=== PATIENT | female | born 1980 ===

== ENCOUNTER 2017-08-26 03:36 | Emergency (ER) | payer OTHER, SELFPAY ==
[2017-08-26 03:37] VITALS: BMI 33.3
[2017-08-26 04:07] VITALS: O2SAT 98
--- NOTE | 2017-08-26 04:46 | ED PDOC ---
HPI: General Adult Time Seen by Provider: 08/26/17 04:07 Chief Complaint (Nursing): Fever Chief Complaint (Provider): fever History Per: Patient History/Exam Limitations: no limitations Onset/Duration Of Symptoms: Hrs Current Symptoms Are (Timing): Still Present Additional Complaint(s): 37 y/o female presents for evaluation of tactile fever x 4 hours. Associated headache, bodyaches. Tylenol taken at 21:00 last night for headache, but patient reports no other symptoms then. Denies dizziness, neck pain, nausea/ vomiting, nasal congestion, throat pain, cough, chest pain, shortness of breath , abdominal pain, urinary symptoms. Past Medical History Reviewed: Historical Data, Nursing Documentation, Vital Signs Vital Signs: Last Vital Signs Temp 102.3 F H 08/26/17 04:04 Pulse 103 H 08/26/17 04:04 Resp 16 08/26/17 04:04 BP 117/71 08/26/17 04:04 Pulse Ox 98 08/26/17 06:02 - Medical History PMH: No Chronic Diseases - Surgical History Surgical History: - Family History Family History: States: No Known Family Hx - Home Medications Home Medications: Ambulatory Orders Medication Instructions Recorded Oseltamivir Phosphate [Tamiflu] 75 mg PO BID #10 capsule 06/22/16 Albuterol HFA [Ventolin HFA 90 1 - 2 puff IH Q4 PRN #1 inhaler 06/24/16 mcg/actuation (8 g)] Ibuprofen [Motrin Tab] 600 mg PO Q6 PRN #15 tab 06/24/16 - Allergies Allergies/Adverse Reactions: Allergies Allergy/AdvReac Type Severity Reaction Status Date / Time No Known Allergies Allergy Verified 08/26/17 04:04 Review of Systems ROS Statement: Except As Marked, All Systems Reviewed And Found Negative Constitutional: Positive for: Fever Neurological: Positive for: Headache Physical Exam - Reviewed Nursing Documentation Reviewed: Yes Vital Signs Reviewed: Yes - Physical Exam Appears: Positive for: Well, Non-toxic, No Acute Distress Head Exam: Positive for: ATRAUMATIC, NORMAL INSPECTION, NORMOCEPHALIC Skin: Positive for: Normal Color Eye Exam: Positive for: Normal appearance ENT: Positive for: Normal ENT Inspection Neck: Positive for: Normal, Painless ROM Cardiovascular/Chest: Positive for: Regular Rate, Rhythm Respiratory: Positive for: Normal Breath Sounds Gastrointestinal/Abdominal: Positive for: Normal Exam Back: Positive for: Normal Inspection Extremity: Positive for: Normal ROM Neurologic/Psych: Positive for: Alert, Oriented. Negative for: Motor/Sensory Deficits - ECG O2 Sat by Pulse Oximetry: 98 - Progress ED Course And Treament: flu, ibuprofen On re-eval, patient states she is feeling better. Vitals improved Patient educated on findings, advised ibuprofen/tylenol PRN fever. Fluids. Rest. Follow up PMD 2-3 days. Return precautions given. Disposition - Clinical Impression Clinical Impression: Viral syndrome - Patient ED Disposition Is Patient to be Admitted: No Counseled Patient/Family Regarding: Studies Performed, Diagnosis, Need For Followup - Disposition Disposition: Routine/Home Disposition Time: 06:02 Condition: IMPROVED Instructions: Viral Syndrome (DC) Forms: [employer] (Syrian), [facility] ED School/Work Excuse
[2017-08-26 07:11] VITALS: BP 126/82; PULSE 88; RESP 18; TEMP 99.1
== END 2017-08-26 05:58 | disposition home or self-care (01) ==
LOC: H.ER 03:36
DX: B34.9 Viral infection, unspecified (principal)

== ENCOUNTER 2017-12-07 22:53 | Emergency (ER) | payer OTHER, SELFPAY ==
[2017-12-07 22:53] VITALS: BMI 33.3
[2017-12-07 23:13] VITALS: BP 114/61; PULSE 77; RESP 18; TEMP 99.1; O2SAT 99
--- NOTE | 2017-12-07 23:14 | ED PDOC ---
Lower Extremity Pain/Injury Time Seen by Provider: 12/07/17 23:14 Chief Complaint (Nursing): Lower Extremity Problem/Injury Chief Complaint (Provider): ankle pain History Per: Patient Additional Complaint(s): 37-year-old female presents with pain and swelling to left foot status post trip and fall about 20 minutes prior to arrival. Patient unable to bear any weight. She came right to ED. No meds taken for pain relief. No associated ankle pain. PMD: none Past Medical History Reviewed: Historical Data, Nursing Documentation, Vital Signs Vital Signs: Last Vital Signs Temp 99.1 F 12/07/17 23:11 Pulse 77 12/07/17 23:11 Resp 18 12/07/17 23:11 BP 114/61 12/07/17 23:11 Pulse Ox 99 12/07/17 23:11 - Medical History PMH: No Chronic Diseases - Surgical History Surgical History: Other surgeries: tubal ligation - Family History Family History: States: No Known Family Hx - Living Arrangements Living Arrangements: With Family - Social History Current smoker - smoking cessation education provided: No Alcohol: None Drugs: Denies - Home Medications Home Medications: Ambulatory Orders Medication Instructions Recorded Oseltamivir Phosphate [Tamiflu] 75 mg PO BID #10 capsule 06/22/16 Albuterol HFA [Ventolin HFA 90 1 - 2 puff IH Q4 PRN #1 inhaler 06/24/16 mcg/actuation (8 g)] Ibuprofen [Motrin Tab] 600 mg PO Q6 PRN #15 tab 06/24/16 - Allergies Allergies/Adverse Reactions: Allergies Allergy/AdvReac Type Severity Reaction Status Date / Time No Known Allergies Allergy Verified 12/07/17 23:11 Wells Criteria for PE - Wells Criteria for Pulmonary Embolism Clinical Signs and Symptoms of DVT: No P.E is #1 Diagnosis, or Equally Likely: No Heart Rate >100: No Immobilization at least 3 days;Surgery previous 4 weeks: No Previous, objectively diagnosed PE or DVT: No Hemoptysis: No Malignancy w/treatment within 6 months, or palliative: No Total Score: 0 Review of Systems ROS Statement: Except As Marked, All Systems Reviewed And Found Negative Musculoskeletal: Positive for: Other (left foot injury) Physical Exam - Reviewed Nursing Documentation Reviewed: Yes Vital Signs Reviewed: Yes - Physical Exam Appears: Positive for: Well, Non-toxic, No Acute Distress Skin: Positive for: Normal Color. Negative for: Rash Eye Exam: Positive for: Normal appearance Extremity: Positive for: Other (Moderate swelling and tenderness dorsal lateral aspect of left foot, nontender left ankle, normal distal sensation, palpable distal pulses) Neurologic/Psych: Positive for: Alert, Oriented - Laboratory Results Urine POC: Negative (has tubal ligation) - ECG O2 Sat by Pulse Oximetry: 99 Pulse Ox Interpretation: Normal - Other Rad Left foot x-ray X-Ray: Interpreted by Me, Viewed By Me X-Ray Interpretation: midly displaced fracture to base of 5th metatarsal Medical Decision Making Medical Decision Makin37 y/o with left foot pain Plan: PO motrin X-ray left ankle Patient to be seen by Dr. Fox, podiatry resident. Disposition - Clinical Impression Clinical Impression: Foot fracture - Patient ED Disposition Is Patient to be Admitted: Transfer of Care - Disposition Disposition: Transfer of Care Disposition Time: 00:05 Condition: FAIR Instructions: Foot Fracture (DC) Forms: [employer] (Ukrainian) Patient Signed Over To: Tabatha Forte Handoff Comments: pending podiatry consult and final disposition
--- NOTE | 2017-12-08 00:29 | ED PDOC ---
- Laboratory Results Urine POC: Negative (has tubal ligation) - ECG O2 Sat by Pulse Oximetry: 99 - Progress ED Course And Treament: Case endorsed to headline writer from Mala GARCIA pending podiatry eval Patient evaluated by podiatry resident on-call; placed in posterior splint/ crutches given with demonstration on use Advised tylenol, RICE Follow up podiatry clinic Patient re-educated on findings, advised follow up as instructed Return precautions given Disposition - Clinical Impression Clinical Impression: Foot fracture - POA Present On Arrival: None - Disposition Referrals: Podiatry Clinic [Outside] Disposition: Routine/Home Disposition Time: 00:28 Condition: IMPROVED Instructions: Foot Fracture (DC) Print Language: NEPALI
--- NOTE | 2017-12-08 01:34 | CP.PCM.CON ---
History of Present Illness - History of Present Illness History of Present Illness: Consult notes for attending Dilia Candelaria 37 y/o F patient seen and evaluated at the ED complaining of pain and swelling in his left foot. Patient is AAO X 3 and NAD. Patient states that she tripped down and twisted his left foot while she was helping her hausband to carry the garbage. Patient states that this happened few hours ago. Patient states that he can't put weight on his left foot. Patient states that his pain is 8/10 on VAS scale. Patient denies any other pedal complaint. Patient denies any F/N/V/C or SOB recently. PMH: None PSH: , tubal ligation Allergies: NKDA Social Hx: Denies smooking, ETOH or illicite drug use. Review of Systems - Review of Systems Review of Systems: As per HPI Past Patient History - Past Social History Alcohol: None Drugs: Denies - PSYCHIATRIC Hx Substance Use: No - SURGICAL HISTORY Hx Surgeries: Yes Hx Section: Yes Hx Tubal Ligation: Yes - ANESTHESIA Hx Anesthesia: Yes Hx Anesthesia Reactions: No Meds Allergies/Adverse Reactions: Allergies Allergy/AdvReac Type Severity Reaction Status Date / Time No Known Allergies Allergy Verified 12/07/17 23:11 Physical Exam - Constitutional Appears: Well, Non-toxic, No Acute Distress - Head Exam Head Exam: ATRAUMATIC, NORMOCEPHALIC - Extremities Exam Additional comments: Lower extremity focused exam: Vasc: DP/PT 2/4 b/. Cap refill < 3 sec in all digits. Temp gradient is warm to cool. non pitting edema noted at the level of the lateral aspect of the left foot at the 5th met base. Neuro: protective and gross sensation are intact b/l. Derm: No open lesions, No clinical signs of infection. MSK: Pain on palpation of the lateral aspect of the left foot at the 5th met base.. Pain with inversion of the left foot. Muscle power intact 5/5 in all muscle groups b/l. - Neurological Exam Neurological exam: Alert, Oriented x3 - Psychiatric Exam Psychiatric exam: Normal Affect, Normal Mood Results - Vital Signs Recent Vital Signs: Last Vital Signs Temp 99.1 F 12/07/17 23:11 Pulse 77 12/07/17 23:11 Resp 18 12/07/17 23:11 BP 114/61 12/07/17 23:11 Pulse Ox 99 12/08/17 00:28 Assessment & Plan - Assessment and Plan (Free Text) Assessment: 37 y/o F patient Seen and evaluated at the ED for fracture base of left 5th metatarsal bone. Plan: Patient seen and evaluated at the ED Plan discussed in details with the attending Dilia Candelaria. Vital data reviewed, Afebrile X-ray left foot showed fracture 5th met. base. AO posterior and u splint applied to the patient left lower extremity Patient obstructed to keep her left LE NWB and to ambulate using crutches. Dispensed 1 pair of crutches. Patient instructed to do icing and elevation. Patient instructed to use OTC Tylenol for pain. Patient will F/U at podiatry clinic. - Date & Time Date: 12/08/17 Time: 01:33
--- NOTE | 2017-12-08 10:50 | RAD ---
Date of service: 12/07/2017 PROCEDURE: Left Foot Radiographs. HISTORY: trauma COMPARISON: None. FINDINGS: BONES: Comminuted mildly displaced fracture at the base of the 5th metatarsal. There is a nondisplaced transverse component. There is an oblique minimally displaced component at the lateral base. No other fracture is identified. JOINTS: Normal. SOFT TISSUES: Normal. OTHER FINDINGS: None. IMPRESSION: Comminuted mildly displaced fracture base of 5th metatarsal.
== END 2017-12-08 01:06 | disposition home or self-care (01) ==
LOC: H.ER 22:53
DX: S92.302A Fracture of unspecified metatarsal bone(s), left foot, initial encounter for closed fracture (principal); W19.XXXA Unspecified fall, initial encounter; Y92.89 Other specified places as the place of occurrence of the external cause

== ENCOUNTER 2017-12-10 13:50 | Emergency (ER) | payer OTHER, SELFPAY ==
[2017-12-10 13:50] VITALS: BMI 33.3
[2017-12-10 14:07] VITALS: BP 105/71; PULSE 83; RESP 18; TEMP 97; O2SAT 99
--- NOTE | 2017-12-10 14:12 | ED PDOC ---
HPI: General Adult Time Seen by Provider: 12/10/17 14:11 Chief Complaint (Nursing): Wound Check Chief Complaint (Provider): leg pain History Per: Patient Additional Complaint(s): 37-year-old female presents to emergency department with pain to splint was applied to left leg. Patient was seen in ED 2 days ago and diagnosed with left foot fracture. She was seen yesterday in clinic at which time a new cast was placed. Patient states since placement of the cast she is for pain and rubbing against her heel. She returns today for further evaluation. Past Medical History Reviewed: Historical Data, Nursing Documentation, Vital Signs Vital Signs: Last Vital Signs Temp 97.0 F L 12/10/17 14:05 Pulse 83 12/10/17 14:05 Resp 18 12/10/17 14:05 BP 105/71 12/10/17 14:05 Pulse Ox 99 12/10/17 14:12 - Medical History PMH: No Chronic Diseases - Surgical History Surgical History: - Family History Family History: States: No Known Family Hx - Living Arrangements Living Arrangements: With Family - Social History Current smoker - smoking cessation education provided: No Alcohol: None Drugs: Denies - Home Medications Home Medications: Ambulatory Orders Medication Instructions Recorded Oseltamivir Phosphate [Tamiflu] 75 mg PO BID #10 capsule 06/22/16 Albuterol HFA [Ventolin HFA 90 1 - 2 puff IH Q4 PRN #1 inhaler 06/24/16 mcg/actuation (8 g)] Ibuprofen [Motrin Tab] 600 mg PO Q6 PRN #15 tab 06/24/16 - Allergies Allergies/Adverse Reactions: Allergies Allergy/AdvReac Type Severity Reaction Status Date / Time No Known Allergies Allergy Verified 12/07/17 23:11 Review of Systems ROS Statement: Except As Marked, All Systems Reviewed And Found Negative Musculoskeletal: Positive for: Other (discomfort to left leg cast) Physical Exam - Reviewed Nursing Documentation Reviewed: Yes Vital Signs Reviewed: Yes - Physical Exam Appears: Positive for: Well, Non-toxic. Negative for: No Acute Distress Skin: Positive for: Normal Color. Negative for: Rash Eye Exam: Positive for: Normal appearance Extremity: Positive for: Other (Posterior splint in place to left lower extremity, normal cap refill) Neurologic/Psych: Positive for: Alert, Oriented - ECG O2 Sat by Pulse Oximetry: 99 Pulse Ox Interpretation: Normal Medical Decision Making Medical Decision Makin37 year old with cast pain Dr. Fox, podiatry resident came to bedside to see patient. Splint was replaced by resident. Patient confirms new splint is comfortable. Patient was advised to follow-up next week with podiatry clinic. Disposition - Clinical Impression Clinical Impression: Foot fracture - Patient ED Disposition Is Patient to be Admitted: No Counseled Patient/Family Regarding: Need For Followup - Disposition Referrals: Podiatry Clinic [Outside] Disposition: Routine/Home Disposition Time: 15:05 Condition: STABLE Additional Instructions: Keep splint on at all times. Follow up next week with podiatry clinic. Instructions: Foot Fracture (DC), Cast Care Forms: [employer] ([place]i)
--- NOTE | 2017-12-10 16:01 | CP.PCM.CON ---
History of Present Illness - History of Present Illness History of Present Illness: Podiatry consult notes for attending Laure Candelaria 37 y/o F patient seen and evaluated at the ED complaining of pain at her left heel at the site of posterior splint. Patient is AAO X 3 and NAD. Patient states that she got her left foot fractured last thursday and came to the ED where her left foot put in a posterior and u splint. Patient states that she came yesterday to the podiatry clinic and she had the posterior splint applied again and since then she is feeling pain in her left heel. Patient states that his pain is 4/10 on VAS scale and it's more like friction between the splint and her heel. Patient denies any other pedal complaint. Patient denies any F/N/V /C or SOB recently. PMH: None PSH: , tubal ligation Allergies: NKDA Social Hx: Denies smooking, ETOH or illicite drug use. Review of Systems - Review of Systems Review of Systems: As per HPI Past Patient History - Past Social History Smoking Status: Never Smoked - PSYCHIATRIC Hx Substance Use: No - SURGICAL HISTORY Hx Surgeries: Yes Hx Section: Yes Hx Tubal Ligation: Yes - ANESTHESIA Hx Anesthesia: Yes Hx Anesthesia Reactions: No Meds Allergies/Adverse Reactions: Allergies Allergy/AdvReac Type Severity Reaction Status Date / Time No Known Allergies Allergy Verified 12/07/17 23:11 Physical Exam - Constitutional Appears: Well, Non-toxic, No Acute Distress - Head Exam Head Exam: ATRAUMATIC, NORMOCEPHALIC - Extremities Exam Additional comments: Lower extremity focused exam: Vasc: DP/PT 2/4 b/. Cap refill < 3 sec in all digits. Temp gradient is warm to cool. No edema. Mild ecchymosis at the base of the left 5th metatarsal bone. Neuro: protective and gross sensation are intact b/l. Derm: No open lesions, No clinical signs of infection. MSK: Pain on palpation of the lateral aspect of the left foot at the 5th met base. Muscle power intact 5/5 in all muscle groups b/l. Palpating the left calf and left heel didn't illicit any pain. - Neurological Exam Neurological exam: Alert, Oriented x3 - Psychiatric Exam Psychiatric exam: Normal Affect, Normal Mood Results - Vital Signs Recent Vital Signs: Last Vital Signs Temp 97.0 F L 12/10/17 14:05 Pulse 83 12/10/17 14:05 Resp 18 12/10/17 14:05 BP 105/71 12/10/17 14:05 Pulse Ox 99 12/10/17 15:48 Assessment & Plan - Assessment and Plan (Free Text) Assessment: 37 y/o F patient Seen and evaluated at the ED for pain at the back of the left heel after splinting her for fracture base of left 5th metatarsal bone. Plan: Patient seen and evaluated at the ED Plan discussed in details with the attending DrDilia. Vital data reviewed, Afebrile New AO posterior splint applied to the patient left lower extremity Patient instructed to still keeping her left LE NWB and to ambulate using crutches. Patient instructed to use OTC Tylenol for pain. Patient will F/U at podiatry clinic. - Date & Time Date: 12/10/17 Time: 16:04
== END 2017-12-10 15:09 | disposition home or self-care (01) ==
LOC: H.ER 13:50
DX: Z47.89 Encounter for other orthopedic aftercare (principal)

== ENCOUNTER 2017-12-30 11:32 | Day surgery (SDC) | payer SELFPAY ==
[~2017-12-30 11:32] MED LIST: Lactated Ringer's 1,000 ML IV ONE
--- NOTE | 2017-12-30 13:40 | CP.SDSHP ---
Same Day Surgery H & P - History Proposed Procedure: Left 5th metatarsal ORIF Pre-Op Diagnosis: Left 5th metatarsal fracture - Allergies Allergies: Allergies No Known Allergies Allergy (Verified 12/07/17 23:11) - Physical Exam Vital Signs: Vital Signs 12/30/17 12/30/17 12:20 12:22 Temperature 98.2 F Pulse Rate 68 68 Respiratory 20 Rate Blood Pressure 108/56 L O2 Sat by Pulse 97 Oximetry - Date & Time Date: 12/30/17 Time: 13:39 Short Stay Discharge - Short Stay Discharge Admitting Diagnosis/Reason for Visit: S92.35 Disposition: HOME/ ROUTINE Referrals: Ana Velez MD [Primary Care Provider] - Additional Instructions (Diet, Activity): -Patient in good/stable condition for discharge home -Pt to resume medications per medical reconciliation -Resume regular diet Please keep dressing clean, dry, & intact to surgical site -Use plastic bag over bandage for showering -Wear post op shoe at all times when ambulating -Call clinic if you see signs of infection (redness, swelling, malodor) -Please make an appointment to see Dr. Kelsey in office/clinic within 1 week for post-op check Progress Note/Discharge Note with Instructions: - Patient evaluated bedside in recovery s/p surgical procedure. - After surgical procedure patient in NAD - (+) Void, (+) Appetite - Capillary refill time <3s and NVSI intact. - Patient denies complaints at this time - Post operative instructions and plan of care explained to patient at length. - Pt. acknowledges understanding. - Patient stable for DC per podiatric surgery
--- NOTE | 2017-12-30 13:42 | CP.PCM.PN ---
Subjective - Date & Time of Evaluation Date of Evaluation: 12/30/17 Time of Evaluation: 13:40 - Subjective Subjective: 37 yo female seen and evaluated for left foot surgery. Patient states that she twisted her foot in a hole in the hallway about a month ago. She notes that she is in mild pain however has been taking pain medication. She has remained nonweight bearing to her left foot with the use of crutches. She has been NPO since 9:30 pm last night and denies eating or drinking anything since that time. She has had surgeries in the past and states she has had no reactions to anesthesia. Patient denies N/V/F/SOB. Objective - Vital Signs/Intake and Output Vital Signs (last 24 hours): Temp Pulse Resp BP Pulse Ox 98.2 F 68 20 108/56 L 97 12/30/17 12:20 12/30/17 12:22 12/30/17 12:20 12/30/17 12:20 12/30/17 12:20 - Medications Medications: Current Medications Bupivacaine HCl (Marcaine 0.5%) 20 ml IJ ONCE ONE Stop: 12/30/17 13:37 Cefazolin Sodium 2 gm/ Sodium (Chloride) 100 mls @ 100 mls/hr IVPB ONCE ONE PRN Reason: Protocol Stop: 12/30/17 14:35 Sodium Chloride (Sodium Chloride 0.9%) 1,000 mls @ 0 mls/hr IV .Q0M BERTRAND PRN Reason: Per Protocol Stop: 12/31/17 13:37 Lidocaine HCl (Lidocaine 1% (20ml)) 20 ml IJ ONCE ONE Stop: 12/30/17 13:37 - Constitutional Appears: Well, Non-toxic, No Acute Distress - Head Exam Head Exam: ATRAUMATIC, NORMOCEPHALIC - Extremities Exam Additional comments: LLE focused exam. Vascular: CFT <3 seconds to left digits Ortho: Able to move toes on left Neuro: Gross and protective sensation intact. Derm: Posterior splint clean, dry, and intact. - Neurological Exam Neurological Exam: Alert, Awake, Oriented x3 - Psychiatric Exam Psychiatric exam: Normal Affect, Normal Mood Assessment and Plan - Assessment and Plan (Free Text) Assessment: 37 yo female seen and evaluated for left 5th metatarsal fracture ORIF surgery. Plan: Pt was seen and examined in SDS Pt NPO status was confirmed All pre-op testing and clearance in chart Pt has exhausted all conservative treatment at this time and is opting for surgical intervention Pt was explained procedure and post-operative course All pt's questions were answered to satisfaction No guarantees were made Pt understands all risks, benefits and complications of procedure Pt will follow-up with within 1 week of surgery
[2017-12-30] MEDS ORDERED: Sodium Chloride 0.9% 1,000 ML IV SCH (13:45)
[2017-12-30] MEDS ORDERED: Lidocaine 1% Inj (20ml) IJ ONE (14:00)
[2017-12-30] MEDS ORDERED: Bupivacaine 0.5% Inj(30mL) IJ ONE (14:30)
[2017-12-30] MEDS ORDERED: ceFAZolin IV 2 gm in Dextrose 2 GM/50 ML BAG IVPB ONE (14:35)
[2017-12-30] MEDS ORDERED: MethylPREDNISolone Depo 40 mg/ml Inj ONE (14:47)
[2017-12-30] MEDS ORDERED: Dexamethasone 4 mg/1 ml ONE ×3 (14:48→16:14)
[2017-12-30] MEDS ORDERED: ceFAZolin IV 1 gm in Dextrose 2 GM/100 ML BAG IVPB ONE (14:49)
[2017-12-30] MEDS ORDERED: Lidocaine Hydrochloride 5 ML INJ ONE (14:49)
[2017-12-30] MEDS ORDERED: Midazolam 2 MG/2 ML VIAL ONE (15:12)
[2017-12-30] MEDS ORDERED: Propofol 10 mg/ml Inj (20 ML) ONE (15:12)
[2017-12-30] MEDS: Bupivacaine HCl 0.25% PF (30 ml) Inj ONE ×2 (15:34→16:44)
[2017-12-30] MEDS ORDERED: Oxycodone/Acetaminophen 5/325 mg Tab PO PRN ×2 (16:54)
--- NOTE | 2017-12-30 16:57 | PCM.SURG1 ---
Surgeon's Initial Post Op Note - Surgeon's Notes Surgeon: Dr. Kelsey, DPM Plant Safety Engineer: Dr. Do PGY3, Dr. Copeland PGY2 Type of Anesthesia: General LMA Anesthesia Administered By: Dr. Rose Mary Carvalho Pre-Operative Diagnosis: Left 5th metatarsal base fracture Operative Findings: See dictation: I: 10cc 1:1 mix of 1% lidocaine plain and 0.25% marcaine plain, 10 cc 0.25% marcaine. M: .045 kwire, .062 k wire, 26 gauge monofilament, 3-0vicryl, 4-0 vicryl, 4-0 monocril Post-Operative Diagnosis: Same Operation Performed: Left 5th metatarsal fracture ORIF with tension banding Specimen/Specimens Removed: none Estimated Blood Loss: EBL {In ML}: 5 Blood Products Given: N/A Drains Used: No Drains Post-Op Condition: Good Date of Surgery/Procedure: 12/30/17 Time of Surgery/Procedure: 17:21
[2017-12-30] MEDS ORDERED: HYDROmorphone 1 mg/ml ISec ONE (17:07)
[2017-12-30] MEDS: HYDROmorphone 0.5 mg/0.5 ml ISec IVP PRN ×3 (17:10→17:42)
[2017-12-30] MEDS ORDERED: Lactated Ringer's 1,000 ML IV SCH (17:15)
[2017-12-30 18:24] VITALS: RESP 18
[2017-12-30 18:28] VITALS: BMI 33.3
[2017-12-30] MEDS ORDERED: Oxycodone/Acetaminophen 5/325 mg Tab PO ONE (18:40)
[2017-12-30 18:44] VITALS: O2SAT 98
[2017-12-30 19:44] VITALS: BP 102/56; PULSE 54; TEMP 98.2
--- NOTE | 2017-12-31 06:22 | OP ---
Copied To: Raymond Do DPM Attending MD: Dave Kelsey DPM PROCEDURE DATE: 12/30/2017 PRIMARY SURGEON: Dave Kelsey DPM ASSISTANTS: Raymond Do DPM, PGY-3 and Niraj Copeland DPM, PGY-2. ANESTHESIOLOGIST: Jonel Warren MD ANESTHESIA TYPE: General LMA with local. PREOPERATIVE DIAGNOSIS: Left foot fifth metatarsal comminuted base fracture. POSTOPERATIVE DIAGNOSIS: Left foot fifth metatarsal comminuted base fracture. PROCEDURES PERFORMED: 1. Left foot fifth metatarsal base open reduction with internal fixation. 2. Fluoroscopy. INDICATIONS: The patient is a 37-year-old female with the above-stated diagnosis. The patient suffered a traumatic injury and is now in need of surgical intervention. The patient signed a surgical consent after careful explanation of the risks, benefits, complications, and potential alternatives to the proposed surgical procedure. No guarantees were either given or implied. All the patient's questions were answered to her satisfaction. PREPARATION: The patient's n.p.o. status was confirmed prior to bringing the patient to the operating room. The patient was brought into the operating room and placed on the operating room table in a supine position. A well-padded pneumatic tourniquet was applied in a supramalleolar position to the patient's left ankle and set at 250 mmHg to be inflated once the procedure began. Once general anesthetic was confirmed to have been achieved, the patient's left foot then received total of 10 mL of 1:1 mixture of 0.25% Marcaine plain to 1% lidocaine plain along the surgical area. Once local anesthetic was confirmed to have been achieved, the patient's left foot was then prepped and draped in the usual sterile manner. Foot was exsanguinated, tourniquet was inflated, and the procedure began. PROCEDURE #1: Left fifth metatarsal base open reduction with internal fixation under fluoroscopy. Attention was then directed to the lateral aspect of the patient's foot where fifth metatarsal styloid process was palpated and marked. At this time, superior to the dissection of the styloid process in the dorsolateral aspect of the lateral foot. An approximately 3-cm linear longitudinal incision was made with the distal aspect of the styloid process being the midpoint using a #15 blade. This incision was extended down to its subcutaneous tissue layers with care being taken to identify, avoid, and retract all vital neurovascular structures. All bleeders were cauterized and ligated as needed and encountered. Peroneus brevis insertion was visualized at this time and retracted inferiorly, thus allowing better visualization of periosteum in the styloid process. At this time, superior to the insertion of the peroneus brevis tendon fibers along the full length of the incision, a linear longitudinal periosteal incision was made down to the level of the joint. Periosteum was then reflected medially and laterally thus allowing visualization of fifth metatarsal base and styloid process. At this time, sagittal plane component of fracture fragment was appreciated. Note, that the patient is three weeks status post initial injury, and there is no significant noted callus formation at this time across the fracture site. On further visualization and examination, it should be noted that styloid avulsion component of fracture due to a secondary fracture line was appreciated and found to be moderately unstable. Surgical site was then flushed with copious amount of sterile saline ensuring release of impinging soft tissue between osseus ends was performed. The medullary components of hematoma left intact. Surgical site was once again flushed with copious amounts of sterile saline. At this time, fluoroscopy was introduced to allow guidance for temporary fixation point. At this time, a 0.062-inch K-wire was placed inferior to the styloid process and driven obliquely from proximal lateral to distal medial incorporating two fracture fragments. Under fluoroscopic guidance, positioning was found to be adequate. Next, a 0.045-inch K-wire was placed superior to the styloid process in parallel with the 0.062-inch K-wire and driven in similar orientation. Both K-wires purchased the medial cortex of the fifth metatarsal. At this time, measuring from sagittal plane fracture fragment to distal tip of K-wire was assessed, and the same measured length was used to place distal fixation point. This distal fixation point which was previously measured was used as a guide point to define a hole oriented from dorsal lateral surface of the fifth metatarsal to the plantar lateral surface of the fifth metatarsal using a 0.028-inch K-wire to distal point hole. At this time, a 26-gauge monofilament stainless steel wire was attached to a bilayer and attached to the trephine hole. Using manual manipulation to incorporate along proximal K-wires, a zowtqa-[id number]-aldka stitch pattern was weaved with the braided 26-gauge wire. Orientation of the ixbjzp-lu-kqvos was found to be stable and adequate. At this time, K-wires were then angled and bent to allow adequate pattern retention of monofilament K-wires without displacement. Redundant ends of the proximal K-wires were then cut, passed from the operative field. Then, ends of K-wires were oriented to fully contact and maintain position of braided-gauged monofilament. At this time under fluoroscopic guidance, [id number] monofilament cerclage configuration was tensioned. Once adequate tension was achieved, fluoroscopic guidance was used to evaluate and confirm that fracture fragment diastasis and position was reduced and maintained respectively. Adequate fracture fixation was appreciated at this time. Surgical site was then flushed with copious amounts of sterile saline. Redundant edges of monofilament K-wire were then cut using crepe sole wire brusher, braided tail end, was then tucked inferiorly to the fifth metatarsal bone shaft to fix subperiosteally with no involvement of myocutaneous structures or impingement thereof. At this time, surgical site was flushed with copious amounts of sterile saline. Periosteal structures were reapproximated using 3-0 Vicryl. Subcutaneous tissue layers were reapproximated using 4-0 Vicryl. Skin was reapproximated using 4-0 Monocryl in a running suture-type fashion. Surgical site then received a postoperative injection of 10 mL of 0.25% Marcaine plain in a local block type fashion. Surgical site was then dressed with Steri-Strips, Xeroform, 4x4 gauze, and Kerlix. The patient was placed in a well-padded fiberglass cast to be nonweightbearing postoperatively. POSTOPERATIVE CONDITION: The patient tolerated the anesthesia and procedure well and was escorted to the recovery room with vital signs stable and neurovascular status intact. The patient's cast was bivalved at this time. The patient had no complaints or complications and will follow up with Dr. Kelsey on an outpatient basis. Raymond Do DPM Dave Kelsey DPM Jayme # [phone] GARETT
--- NOTE | 2017-12-31 07:36 | RAD ---
Date of service: 12/30/2017 PROCEDURE: Left Foot Radiographs. HISTORY: s/p left foot surgery COMPARISON: None. FINDINGS: BONES: Cancerous fine bony and soft tissue details. 2 K-wires and cerclage wire reduced comminuted fracture of the base of 5th metatarsal bone. Limited postoperative changes seen in local soft tissues. No interval new fracture or dislocation appreciable. No subluxation either. JOINTS: As above. SOFT TISSUES: As above. OTHER FINDINGS: None. IMPRESSION: Status post ORIF comminuted fracture base 5th metatarsal bone left foot.
--- NOTE | 2017-12-31 12:24 | RAD ---
Date of service: 12/30/2017 PROCEDURE: Intraoperative Fluoroscopy. HISTORY: LEFT FOOT FINDINGS: Fluoroscopic assistance was provided Total fluoroscopic time (continuous mode) utilized during the procedure (seconds). 8.2 seconds. Please refer to the operative report from [facility]. Total exam DLP: 0.17. (mGy)
== END 2017-12-30 19:50 | disposition home or self-care (01) ==
LOC: H.OPSURG 11:32
PROVIDERS: ATTEND Podiatrist
DX: S92.352A Displaced fracture of fifth metatarsal bone, left foot, initial encounter for closed fracture (principal); J45.909 Unspecified asthma, uncomplicated; K29.70 Gastritis, unspecified, without bleeding; X58.XXXA Exposure to other specified factors, initial encounter
CPT/HCPCS: 28485; 73630; 76000; 97161; C1713; C1769; G8978; G8979; G8980; J0690; J1100; J1170; J2250; J2405; J2704; J3010; J7030; J7120

== ENCOUNTER 2018-01-13 17:36 | Emergency (ER) | payer SELFPAY ==
[2018-01-13 17:36] VITALS: BMI 33.3
[2018-01-13 17:49] VITALS: BP 111/75; PULSE 93; RESP 16; TEMP 99; O2SAT 99
--- NOTE | 2018-01-13 18:10 | ED PDOC ---
HPI: Wound Care - HPI Time Seen by Provider: 01/13/18 18:01 Chief Complaint (Nursing): Wound Check Chief Complaint (Provider): Wound Check History Per: Patient Exam Limitations: no limitations Location Of Injury: Left: Leg Additional Complaint(s): 37 year old female presents to the ED for wound check. Patient reports she went to the podiatry clinic to have her splint changed but patient states the splint is now wet. She consulted her doctor who said the splint should not be wet prompting ED visit. PMD: none Past Medical History Reviewed: Historical Data, Nursing Documentation, Vital Signs Vital Signs: Last Vital Signs Temp 99.0 F 01/13/18 17:47 Pulse 93 H 01/13/18 17:47 Resp 16 01/13/18 17:47 BP 111/75 01/13/18 17:47 Pulse Ox 99 01/13/18 17:47 - Medical History PMH: Gastritis Denies: Chronic Kidney Disease - Surgical History Surgical History: - Family History Family History: States: Unknown Family Hx - Home Medications Home Medications: Ambulatory Orders Medication Instructions Recorded Albuterol HFA [Ventolin HFA 90 1 - 2 puff IH Q4 PRN #1 inhaler 06/24/16 mcg/actuation (8 g)] Ibuprofen [Motrin Tab] 600 mg PO Q6 PRN #15 tab 06/24/16 Cephalexin [cephalexin] 500 mg PO TID 12/30/17 oxyCODONE/Acetaminophen [Percocet 1 tab PO .Q4-6 PRN 12/30/17 5/325 mg Tab] - Allergies Allergies/Adverse Reactions: Allergies Allergy/AdvReac Type Severity Reaction Status Date / Time No Known Allergies Allergy Verified 01/13/18 17:44 Review of Systems ROS Statement: Except As Marked, All Systems Reviewed And Found Negative Physical Exam - Reviewed Nursing Documentation Reviewed: Yes Vital Signs Reviewed: Yes - Physical Exam Appears: Positive for: Non-toxic, No Acute Distress Head Exam: Positive for: ATRAUMATIC, NORMOCEPHALIC Skin: Positive for: Normal Color, Warm, Dry Eye Exam: Positive for: Normal appearance Neck: Positive for: Normal, Painless ROM Cardiovascular/Chest: Negative for: Bradycardia, Tachycardia Respiratory: Negative for: Respiratory Distress Extremity: Positive for: Normal ROM, Other (Left lower leg splint intact) Neurologic/Psych: Positive for: Alert, Oriented. Negative for: Motor/Sensory Deficits - ECG O2 Sat by Pulse Oximetry: 99 (RA) Pulse Ox Interpretation: Normal Medical Decision Making Medical Decision Making: Initial Impression: Wound check Initial Plan: Podiatry consult completed. Splint changed. Scribe Attestation: Documented by Rafi Valenzuela acting as a scribe for Deepika LEMUS. Provider Scribe Attestation: All medical record entries made by the Scribe were at my direction and personally dictated by me. I have reviewed the chart and agree that the record accurately reflects my personal performance of the history, physical exam, medical decision making, and the department course for this patient. I have also personally directed, reviewed, and agree with the discharge instructions and disposition. Disposition - Clinical Impression Clinical Impression: Aftercare for cast or splint check or change Counseled Patient/Family Regarding: Diagnosis, Need For Followup - Disposition Referrals: Podiatry Clinic [Outside] Disposition: Routine/Home Disposition Time: 18:41 Condition: GOOD Forms: Musations (Serbian)
--- NOTE | 2018-01-13 19:58 | CP.PCM.CON ---
History of Present Illness - History of Present Illness History of Present Illness: Podiatry consult notes for attending Dr. Kelsey 37 y/o F patient seen and evaluated at the ED 2 weeks S/P ORIF L 5th met. fracture. Patient states that she was seen today at the podiatry clinic. She states that she had bivalved cast in her left LE. She states that the doctors in the clinic checked her wound and applied dressings and posterior splint. She states that the doctors instructed her to keep her dressings and posterior splint clean/dry and intact. She states that when she went home she was showering and her splint and dressings got wet so she came to the ED to change the dressings and splint. Patient denies any other pedal complaint at this time. Patient denies any F/N/V/C or SOB at this time. Review of Systems - Review of Systems Review of Systems: As per HPI Past Patient History - Past Medical History & Family History Past Medical History?: Yes - Past Social History Smoking Status: Never Smoked - CARDIAC Hx Cardiac Disorders: No - PULMONARY Hx Respiratory Disorders: No - NEUROLOGICAL Hx Neurological Disorder: No - HEENT Hx HEENT Problems: No - RENAL Hx Chronic Kidney Disease: No - ENDOCRINE/METABOLIC Hx Endocrine Disorders: No - HEMATOLOGICAL/ONCOLOGICAL Hx Blood Disorders: No - INTEGUMENTARY Hx Dermatological Problems: No - MUSCULOSKELETAL/RHEUMATOLOGICAL Hx Musculoskeletal Disorders: No - GASTROINTESTINAL Hx Gastritis: Yes - GENITOURINARY/GYNECOLOGICAL Hx Genitourinary Disorders: No - PSYCHIATRIC Hx Psychophysiologic Disorder: No Hx Substance Use: No - SURGICAL HISTORY Hx Surgeries: Yes Hx Section: Yes Hx Tubal Ligation: Yes - ANESTHESIA Hx Anesthesia: Yes Hx Anesthesia Reactions: No Meds Allergies/Adverse Reactions: Allergies Allergy/AdvReac Type Severity Reaction Status Date / Time No Known Allergies Allergy Verified 01/13/18 17:44 Physical Exam - Constitutional Appears: Well, Non-toxic, No Acute Distress - Head Exam Head Exam: ATRAUMATIC, NORMOCEPHALIC - Extremities Exam Additional comments: Left LE focused exam Vasc: DP/PT 2/4; CFT <3s x5; Temp gradient warm to cool, mild edema noted to the left foot. Neuro: grossly intact Derm: incision site was covered by steri-strips. Steri-strip was dry, clean and intact with small spot of dried blood. No drainage and No malodor. Ortho: pain on palpation at the surgical incision site. - Neurological Exam Neurological exam: Alert, Oriented x3 - Psychiatric Exam Psychiatric exam: Normal Affect, Normal Mood Results - Vital Signs Recent Vital Signs: Last Vital Signs Temp 99.0 F 01/13/18 17:47 Pulse 93 H 01/13/18 17:47 Resp 16 01/13/18 17:47 BP 111/75 01/13/18 17:47 Pulse Ox 99 01/13/18 18:47 Assessment & Plan - Assessment and Plan (Free Text) Assessment: 37 y/o F patient seen and evaluated in the ED for posterior splint reapplication 2 weeks S/P ORIF left 5th met fracture Plan: Pt seen and evaluated in ED Posterior splint and dressing removed. Steri-strip was intact Wound dressed using betadine and DSD. Reapplied posterior splint. Patient instructed to keep the splint and the dressings dry/clean and intact. Patient instructed to stay NWB to the left LE. and to ambulates using crutches. Patient instructed to get the Bactrim DS prescribed to her earlier in the clinic and to start it today. Patient instructed if she feel excessive pain, pressure, drainage from the surgery site or any F/N/V/C or SOB to come to the ED. Patient expressed verbal understanding. Patient to follow up in the podiatry clinic next Thursday. - Date & Time Date: 01/13/18 Time: 20:00
== END 2018-01-13 18:52 | disposition home or self-care (01) ==
LOC: H.ER 17:36
DX: Z48.00 Encounter for change or removal of nonsurgical wound dressing (principal); Z98.51 Tubal ligation status

== ENCOUNTER 2018-01-15 22:33 | Emergency (ER) | payer SELFPAY ==
[2018-01-15 22:34] VITALS: BMI 33.3
[2018-01-15 22:43] VITALS: O2SAT 100
[2018-01-15 23:32] LABS: BASO % 0.4 % (0.0-2.0); EOS # 0.1 K/uL (0.0-0.7); EOS % 1.4 % (0.0-4.0); HEMOGLOBIN 13.8 g/dL (12.0-16.0); LYMPH # 2.3 K/uL (1.0-4.3); LYMPH % 26.8 % (20.0-40.0); MEAN CELL VOLUME 83.7 fl (81.0-99.0); MEAN CORPUSCULAR HEMOGLOBIN 28.1 pg (27.0-31.0); MEAN CORPUSCULAR HGB CONC 33.6 g/dL (33.0-37.0); MEAN PLATELET VOLUME 9.6 fl (7.2-11.7); MONO # 0.6 K/uL (0.0-0.8); MONO % 6.7 % (0.0-10.0); NEUT # 5.6 K/uL (1.8-7.0); NEUT % 64.7 % (50.0-75.0); NRBC % 0.1 % (0.0-0.0); RBC 4.91 Mil/uL (3.80-5.20); RED CELL DISTRIBUTION WIDTH 15.5 % (11.5-14.5); WHITE BLOOD COUNT 8.6 K/uL (4.8-10.8)
--- NOTE | 2018-01-16 00:05 | ED PDOC ---
Lower Extremity Pain/Injury Time Seen by Provider: 01/15/18 22:47 Chief Complaint (Nursing): Lower Extremity Problem/Injury Chief Complaint (Provider): Left lateral foot pain, surgery 12/08 History Per: Patient History/Exam Limitations: no limitations Onset/Duration Of Symptoms: Days (1) Current Symptoms Are (Timing): Still Present Additional Complaint(s): 37 yo female with no medical problems presents for evaluation of lateral foot pain and incision site. PT injured ankle on 12/07/17 and had surgical repair by Dr. Kelsey. Pt was seen 2 days ago for evaluation of wet splint. Pt reports pain since that visit. No fever/chills. Past Medical History Reviewed: Historical Data, Nursing Documentation, Vital Signs Vital Signs: Last Vital Signs Temp 98.8 F 01/15/18 22:39 Pulse 86 01/15/18 22:39 Resp 14 01/15/18 22:39 BP 127/74 01/15/18 22:39 Pulse Ox 100 01/15/18 22:39 - Medical History PMH: Gastritis Denies: No Chronic Diseases, Chronic Kidney Disease - Surgical History Surgical History: - Family History Family History: States: Unknown Family Hx - Home Medications Home Medications: Ambulatory Orders Medication Instructions Recorded Albuterol HFA [Ventolin HFA 90 1 - 2 puff IH Q4 PRN #1 inhaler 06/24/16 mcg/actuation (8 g)] Ibuprofen [Motrin Tab] 600 mg PO Q6 PRN #15 tab 06/24/16 Cephalexin [cephalexin] 500 mg PO TID 12/30/17 oxyCODONE/Acetaminophen [Percocet 1 tab PO .Q4-6 PRN 12/30/17 5/325 mg Tab] - Allergies Allergies/Adverse Reactions: Allergies Allergy/AdvReac Type Severity Reaction Status Date / Time No Known Allergies Allergy Verified 01/15/18 22:38 Review of Systems ROS Statement: Except As Marked, All Systems Reviewed And Found Negative Constitutional: Negative for: Fever, Chills Skin: Positive for: Other Physical Exam - Reviewed Nursing Documentation Reviewed: Yes Vital Signs Reviewed: Yes - Physical Exam Appears: Positive for: Well, Non-toxic, No Acute Distress Head Exam: Positive for: ATRAUMATIC, NORMAL INSPECTION, NORMOCEPHALIC Skin: Positive for: Warm. Negative for: Normal Color ((+) pus over drainage site of left lateral foot ) Eye Exam: Positive for: Normal appearance ENT: Positive for: Normal ENT Inspection Neck: Positive for: Normal Respiratory: Negative for: Accessory Muscle Use, Respiratory Distress Back: Positive for: Normal Inspection Extremity: Positive for: Normal ROM, Swelling. Negative for: Tenderness, Deformity Neurologic/Psych: Positive for: Alert, Oriented - Laboratory Results Result Diagrams: 01/15/18 23:29 - ECG O2 Sat by Pulse Oximetry: 100 Medical Decision Making Medical Decision Making: Podiatry consult completed. Labs and XR ordered. Endorsed to Diann Awad PA-C at 0000. Disposition - Clinical Impression Clinical Impression: Encounter for post surgical wound check - Patient ED Disposition Is Patient to be Admitted: Transfer of Care - Disposition Disposition: Transfer of Care Disposition Time: 00:07 Condition: STABLE
[2018-01-16 00:13] LABS: ALBUMIN 4.4 g/dL (3.5-5.0); ALT/SGPT 44 U/L (9-52); AST/SGOT 29 U/L (14-36); BLOOD UREA NITROGEN 16 mg/dl (7-17); CALCIUM 9.6 mg/dL (8.4-10.2); GFR NON-AFRICAN AMERICAN > 60
--- NOTE | 2018-01-16 00:54 | CP.PCM.CON ---
History of Present Illness - History of Present Illness History of Present Illness: Podiatry consult notes for attending Dr. Kelsey 37 y/o F patient seen and evaluated at the ED s/p left 5th metatarsal ORIF (DOS : 12/30/16). Patient states that she was seen in the Podiatry clinic on 01/13/18 and then also seen in the ED the same day. Patient states her splint was changed at that time. Patient reports to the ED today due to complaints of pain and discomfort due to the dressing. Patient denies any change in activity and states she has been sitting in her bed. She states that the doctors instructed her to keep her dressings and posterior splint clean/dry and intact. Patient reports of burning pain post taking Motrin for pain. Patient denies any other pedal complaint at this time. Patient denies any F/N/V/C or SOB at this time. Patient states her pain was 10/10 with the splint and immediately went down to 7 /10 on the VAS as the splint was removed. Review of Systems - Review of Systems All systems: reviewed and no additional remarkable complaints except Review of Systems: As per HPI Past Patient History - Past Medical History & Family History Past Medical History?: Yes - Past Social History Smoking Status: Never Smoked - CARDIAC Hx Cardiac Disorders: No - PULMONARY Hx Respiratory Disorders: No - NEUROLOGICAL Hx Neurological Disorder: No - HEENT Hx HEENT Problems: No - RENAL Hx Chronic Kidney Disease: No - ENDOCRINE/METABOLIC Hx Endocrine Disorders: No - HEMATOLOGICAL/ONCOLOGICAL Hx Blood Disorders: No - INTEGUMENTARY Hx Dermatological Problems: No - MUSCULOSKELETAL/RHEUMATOLOGICAL Hx Musculoskeletal Disorders: No - GASTROINTESTINAL Hx Gastritis: Yes - GENITOURINARY/GYNECOLOGICAL Hx Genitourinary Disorders: No - PSYCHIATRIC Hx Psychophysiologic Disorder: No Hx Substance Use: No - SURGICAL HISTORY Hx Surgeries: Yes Hx Section: Yes Hx Tubal Ligation: Yes - ANESTHESIA Hx Anesthesia: Yes Hx Anesthesia Reactions: No Meds Allergies/Adverse Reactions: Allergies Allergy/AdvReac Type Severity Reaction Status Date / Time No Known Allergies Allergy Verified 01/15/18 22:38 Physical Exam - Constitutional Appears: Well, Non-toxic, No Acute Distress - Head Exam Head Exam: ATRAUMATIC, NORMOCEPHALIC - Extremities Exam Additional comments: Left LE focused exam strike-through noted to the dressing Vasc: DP/PT 2/4; CFT <3s x5; Temp gradient warm to warm at the surgical site, mild edema noted to dorso-lateral aspect of the the left foot. Neuro: grossly intact Derm: distal aspect of the incision site covered with steri-strips, sero- snaguinous drainage noted from the proximal 2 cm opening in the incision, negative probe to bone, negative for tunneling, negative malodor, maceration noted paula-wound, minimal erythema noted paula-wound Ortho: pain on palpation at the surgical incision site, negative Jackson or Jean' s sign - Neurological Exam Neurological exam: Alert, Oriented x3 - Psychiatric Exam Psychiatric exam: Normal Affect, Normal Mood Results - Vital Signs Recent Vital Signs: Last Vital Signs Temp 98.8 F 01/15/18 22:39 Pulse 86 01/15/18 22:39 Resp 14 01/15/18 22:39 BP 127/74 01/15/18 22:39 Pulse Ox 100 01/16/18 00:07 - Labs Result Diagrams: 01/15/18 23:29 01/15/18 23:29 Labs: Laboratory Results - last 24 hr 01/15/18 01/15/18 23:29 23:29 WBC 8.6 RBC 4.91 Hgb 13.8 Hct 41.1 MCV 83.7 MCH 28.1 MCHC 33.6 RDW 15.5 H Plt Count 210 MPV 9.6 Neut % (Auto) 64.7 Lymph % (Auto) 26.8 Drew % (Auto) 6.7 Eos % (Auto) 1.4 Baso % (Auto) 0.4 Neut # (Auto) 5.6 Lymph # (Auto) 2.3 Drew # (Auto) 0.6 Eos # (Auto) 0.1 Baso # (Auto) 0.0 Sodium 142 Potassium 3.8 Chloride 105 Carbon Dioxide 28 Anion Gap 13 BUN 16 Creatinine 0.7 Est GFR ( Amer) > 60 Est GFR (Non-Af Amer) > 60 Random Glucose 118 H Calcium 9.6 Total Bilirubin 0.3 AST 29 ALT 44 Alkaline Phosphatase 72 Total Protein 8.7 H Albumin 4.4 Globulin 4.2 H Albumin/Globulin Ratio 1.0 Assessment & Plan - Assessment and Plan (Free Text) Assessment: 37 y/o F patient seen and evaluated at the ED s/p left 5th metatarsal ORIF (DOS : 12/30/16) for pain to left foot Plan: Patient seen and evaluated for Dr. Kelsey Patient chart reviewed- Afebrile, absent leuykocytosis, WBC 8.6 Ordered X-rays of Left foot- hardware intact, no signs of soft tissue emphysema noted Patient splint removed and incision site evaluated Wound Cx Obtained-Pending results, will follow up with results at next clinic visit on Thursday01/18/18 Loose dressing applied to the surgical site- betadine, Telfa, DSD New Posterior Splint re-applied in a more plantarflexed position as patient complaining of pain Patient to continue taking antibiotics- Bactrim Patient to take Tylenol for pain q4-6 Patient educated on clinical signs of infection, and told to report ot ED if any signs present such as F/N/V/SOB/CP Patient to return to ED is Splint is wet or if splint is not bearable Patient instructed to remain NWB to LLE with the crutches Patient states she felt better after application of new splint Patient demonstrated verbal understanding Podiatry will see patient in clinic for wound care Thank you for the consult
--- NOTE | 2018-01-16 01:00 | ED PDOC ---
- Laboratory Results Result Diagrams: 01/15/18 23:29 01/15/18 23:29 - ECG O2 Sat by Pulse Oximetry: 100 - Progress ED Course And Treament: seen by podiatry resident. Wound redressed. resident has d/w Dr. Kelsey. Patient to f/u with him in office on thursday Disposition - Clinical Impression Clinical Impression: Encounter for post surgical wound check - POA Present On Arrival: None - Disposition Referrals: Dave Kelsey MD [Staff Provider] - Disposition: Routine/Home Disposition Time: 01:00 Condition: STABLE Instructions: Surgical Wound (DC)
[2018-01-16 05:20] VITALS: BP 122/70; PULSE 82; RESP 16; TEMP 98.2
--- NOTE | 2018-01-16 15:39 | RAD ---
Date of service: 01/15/2018 PROCEDURE: Left Foot Radiographs. HISTORY: Drainage from wound site COMPARISON: Comparison made with prior study dated 01/13/2018. FINDINGS: BONES: The current study reveals re- demonstrates 2 small fixation pins and cerclage wire presumably reducing fracture of the base 5th metatarsal. . There is elliptical shaped lucency about the distal coil/ twist in the cerclage wire ; rule out infection or loosening. In addition, there is moderate to fairly significant overlying soft tissue swelling suggesting cellulitis/infection. Questionable few small bubbles of subcutaneous air JOINTS: Normal. SOFT TISSUES: As above. OTHER FINDINGS: None. IMPRESSION: Re- demonstrated are 2 small fixation pins and cerclage wire presumably reducing fracture of the base 5th metatarsal. . There is elliptical shaped lucency about the distal coil/ twist in the cerclage wire ; rule out infection or loosening. In addition, there is moderate to fairly significant overlying soft tissue swelling suggesting cellulitis/infection. Questionable few small bubbles of subcutaneous air
== END 2018-01-16 01:00 | disposition home or self-care (01) ==
LOC: H.ER 22:33
DX: Z48.89 Encounter for other specified surgical aftercare (principal)

== ENCOUNTER 2018-09-06 10:39 | Day surgery (SDC) | payer OTHER, SELFPAY ==
[2018-09-06 11:43] VITALS: BMI 30.7
[2018-09-06] MEDS ORDERED: Lidocaine 1% Inj (20ml) ONE (12:28)
--- NOTE | 2018-09-06 12:32 | CP.SDSHP ---
Same Day Surgery H & P - History Proposed Procedure: US guided FNA of right thyroid nodule Pre-Op Diagnosis: thyroid nodule - Allergies Allergies: Allergies No Known Allergies Allergy (Verified 09/06/18 11:44) - Physical Exam Vital Signs: Vital Signs 09/06/18 11:45 Temperature 98.5 F Pulse Rate 70 Respiratory 12 Rate Blood Pressure 107/65 O2 Sat by Pulse 98 Oximetry Mental Status: Alert & Oriented x3 - Impression Impression: Pt with right thyroid nodule. Plan US guided FNA. Pt. Evaluated Today:Candidate for Anesthesia & Procedure: No - Date & Time Date: 09/06/18 Time: 12:32 Short Stay Discharge - Short Stay Discharge Admitting Diagnosis/Reason for Visit: E07.89 Disposition: HOME/ ROUTINE Referrals: Angélica Chau MD [Primary Care Provider] -
[2018-09-06 12:49] VITALS: RESP 18
--- NOTE | 2018-09-06 12:52 | PCM.SURG1 ---
Surgeon's Initial Post Op Note - Surgeon's Notes Surgeon: Tariq Calhoun MD Tractor Distributor: NONE Type of Anesthesia: Local Pre-Operative Diagnosis: Thyroid nodule Operative Findings: US showed a 3 cm right thyroid nodule Post-Operative Diagnosis: Thyroid nodule Operation Performed: US guided FNA of Right thyroid nodule Specimen/Specimens Removed: 25 g FNA x 5 passes Estimated Blood Loss: EBL {In ML}: 1 Blood Products Given: N/A Drains Used: No Drains Post-Op Condition: Good Date of Surgery/Procedure: 09/06/18 Time of Surgery/Procedure: 12:52
[2018-09-06 13:06] VITALS: BP 115/71; PULSE 78; TEMP 99; O2SAT 99
--- NOTE | 2018-09-07 13:34 | US ---
PROCEDURE: Date of Procedure: 09/06/2018 PROCEDURE: 1. Ultrasound guided FNA of right thyroid nodule, CPT 64047 2. Ultrasound guidance for FNA, 51631 Medications:3cc 1% Lidocaine HISTORY: Enlarged right thyroid nodule. TECHNIQUE: Following informed consent and procedure time-out, a limited ultrasound patient's neck confirmed the presence of a 3 cm complex right thyroid nodule which is predominantly solid. After the patient's neck was prepped and draped in the usual sterile fashion, the skin was anesthetized with 1% lidocaine. Ultrasound-guided fine needle aspiration was then performed of the dominant right thyroid nodule. A total of 5 passes were made into the nodule with 25 gauge needle under ultrasound guidance. The FNA specimen was sent for routine pathology and genetics . Post biopsy ultrasound showed no hematoma. IMPRESSION: Ultrasound-guided FNA of the dominant right thyroid nodule.
== END 2018-09-06 13:50 | disposition home or self-care (01) ==
LOC: H.OPSURG 10:39
PROVIDERS: ATTEND Family Medicine
DX: E04.1 Nontoxic single thyroid nodule (principal)